=== PATIENT | female | born 1995 | race Caucasian/White ===

== ENCOUNTER 2022-12-26 08:32 | Outpatient (CLI) | payer BC, SELFPAY ==
--- NOTE | ~2022-12-26 | XR_ITS ---
EXAMINATION: XR hand LT min 3V, XR hand RT min 3V, XR wrist RT min 3V, XR wrist LT min 3V DATE: 12/26/2022 09:24 INDICATION: Bilateral hand pain TECHNIQUE: 1. Posteroanterior, ulnar deviation, oblique, and lateral views of the left wrist were obtained. 2. Dorsal palmar, oblique and lateral views of the left hand were obtained. 3. Posteroanterior, ulnar deviation, oblique, and lateral views of the right wrist were obtained. 4. Dorsal palmar, oblique and lateral views of the right hand were obtained. COMPARISON: None. FINDINGS: Alignment of the bilateral hands and wrists is normal. No fracture identified. Joint spaces are norm al. No erosions to suggest inflammatory arthritis. No focal soft tissue swelling. IMPRESSION: 1. Negative bilateral hand and wrist radiographs. Reviewed, dictated and finalized at location A. IMPRESSION: 1. Negative bilateral hand and wrist radiographs. IMPRESSION: 1. Negative bilateral hand and wrist radiographs. IMPRESSION: 1. Negative bilateral hand and wrist radiographs.
--- NOTE | ~2022-12-26 | XR_ITS ---
EXAMINATION: XR knee LT min 4V, XR knee RT min 4V DATE: 12/26/2022 09:24 INDICATION: Nontraumatic bilateral knee pain TECHNIQUE: 1. Weight bearing anteroposterior and Hteodore, sunrise, and flexed lateral views of the left knee w ere obtained. 2. Weight bearing anteroposterior and Theodore, sunrise, and flexed lateral views of the right knee were obtained. COMPARISON: None. FINDINGS: Alignment is normal. No fracture. Joint spaces are normal in all 3 compartments of both knees. No er osions or osteophytosis. No joint effusions. Soft tissues are unremarkable. IMPRESSION: 1. Negative bilateral knee radiographs. Reviewed, dictated and finalized at location A. IMPRESSION: 1. Negative bilateral knee radiographs.
== END 2022-12-26 08:33 | disposition home or self-care (01) ==
PROVIDERS: PCP Family Medicine; Visit Provider Family Medicine
DX: M25.561 Pain in right knee (principal); M25.562 Pain in left knee; M79.641 Pain in right hand; M79.642 Pain in left hand
CPT/HCPCS: 73110; 73130; 73564

== ENCOUNTER 2025-03-31 10:12 | Emergency (ER) | payer OTHER, SELFPAY ==
--- NOTE | 2025-03-31 10:14 | ED.GENADULT ---
HPI - General Adult General Chief complaint: Unspecified Stated complaint: Dehydration Time Seen by Provider: 03/31/25 10:13 Source: patient Mode of arrival: ambulatory Limitations: no limitations History of Present Illness HPI narrative: Bebe is a 29 year old female patient presenting to the clinic today with c/o possible dehydration x 1 week. 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 Is c/o rapid heart rate, muscle cramping, nausea, frontal headache, and dizziness (unsteady). Has had the past two days off and has been trying to hydrate but still feels poorly. Has some muscle stiffness in her neck as well. Rates pain 2/10 currently. Has been drinking water, taking OTC electrolye pills, and excerdrin migraine for the headache. Denies any chest pain/sob. No vomiting or diarrhea. Related Data Home Medications ?Medication ?Instructions ?Recorded ?Confirmed ?Last Taken ?Type No Home Medications 03/31/25 03/31/25 Unknown History Allergies Allergy/AdvReac Type Severity Reaction Status Date / Time tetracycline AdvReac Mild fluid Verified 03/31/25 10:55 retention Review of Systems Review of Systems: Pertinent positives per HPI. Patient denies any fever, chills, rash, visual changes, cough, runny nose, sore throat, shortness of breath, chest pain,vomiting, diarrhea, constipation, abdominal pain, or any urinary issues. PMFSH Comments At the time of my signature, I reviewed and agree with the nursing past medical, surgical, social, and family history. There is no relevant family history pertinent to the patient complaint. Exam Narrative: General: Well-developed, well nourished, in no apparent distress Head: Normocephalic, atraumatic Eyes: Pupils equally round and reactive to light bilaterally, EOM intact, sclera and conjunctive clear, no discharge, lids normal Ears: TMs intact and clear, ear canals clear, no drainage, grossly hearing normal. Nose: Nares patent, no discharge, no inflammation, no sinus tenderness. Mouth: Oropharynx without lesions or masses, good dentition, MMM. Neck: Supple, trachea midline, no enlargement of anterior or posterior cervical nodes, no thyroid masses or goiter palpable. Cardio: Regular rate and rhythm, s1 and s2 normal, no murmur appreciated. Resp: Clear to auscultation bilaterally anteriorly and posteriorly, no rhonchi, rales, wheezing or rubs Musculoskeletal: No deformity, non-tender to palpation, grossly normal range of motion, muscle strength strong and equal, peripheral pulse strong, no edema, no cyanosis, normal gait and station Neuro: Alert and oriented x4 with normal speech, no focal deficits, cranial nerves I through XII intact, muscle strength 5 out of 5, sensation intact bilaterally. Romberg testing negative Integumentary: [place], warm, and dry, intact without lesion, no rashes Course Course Emergency Course: Portions of this record may have been created with voice recognition software. Level of Care: Express Care Visit Vital Signs Vital signs: Vital Signs Temperature 37.2 C 03/31/25 10:24 Pulse Rate 76 03/31/25 10:24 Respiratory Rate 20 03/31/25 10:24 Blood Pressure 127/79 03/31/25 10:24 Pulse Oximetry 100 03/31/25 10:24 Oxygen Delivery Room Air 03/31/25 10:24 Temperature 37.2 C 03/31/25 10:24 Pulse Rate 69 03/31/25 10:39 Respiratory Rate 20 03/31/25 10:24 Blood Pressure 117/76 03/31/25 10:39 Pulse Oximetry 100 03/31/25 10:24 Oxygen Delivery Room Air 03/31/25 10:24 Vital signs reviewed Medical Decision Making MDM Narrative Medical decision making narrative: At the time of visit patient is resting comfortably on the exam table. Patient appears to be nontoxic. C/o possible dehydration x 1 week. 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 C/o rapid heart rate, muscle cramping, nausea, frontal headache, muscle stiffness, and dizziness (feeling unsteady) worse with position changes. Has had the past two days off and has been trying to hydrate but still feels poorly. Rates pain 2/10 currently. Has been drinking water, taking OTC electrolyte pills, and Excedrin migraine for the headache. No chest pain, shortness of breath, vomiting, or diarrhea. EKG, Bedside glucose, urine dip, bedside preg test, and orthostatic b/p ordered. No past medical history. No daily medications. EKG: EKG shows sinus bradycardia with heart rate of 59 beats per minute without any ST elevation, depression, or T-wave inversion. Labs: Bedside glucose- 85, urine shows trace of blood. No leukocytes or ketones. Bedside glucose negative. Orthostatic b/p: Lying blood pressure was 113/74 with heart rate of 61, sitting blood pressure was 121/76 with a heart rate of 63, standing blood pressure was 117/76 with a heart rate of 69 Plan: I suspect patient has heat exhaustion. All testing within normal limits in the clinic today. Offered to send patient to the ED for further evaluation such as electrolyte labs and IV fluids and she declined at this time. Wound like to go home and try electrolye supplementation and increase fluids and she will go to the ED if her symptoms worsen. Work note was requested for today and given. Supportive measures were discussed with the patient and they voiced understanding discharge instructions and agrees to treatment plan. Return precautions reviewed Differential Diagnosis Differential Diagnosis: Heat exhaustion, electrolyte imbalance, dehydration, heat stroke, muscle cramping, vertigo, UTI, anemia, hypovolemia, hypoglycemia, hyperglycemia, thyroid disorder Vital Signs Vital Signs: Vital Signs Temperature 37.2 C 03/31/25 10:24 Pulse Rate 76 03/31/25 10:24 Respiratory Rate 20 03/31/25 10:24 Blood Pressure 127/79 03/31/25 10:24 Pulse Oximetry 100 03/31/25 10:24 Oxygen Delivery Room Air 03/31/25 10:24 Temperature 37.2 C 03/31/25 10:24 Pulse Rate 69 03/31/25 10:39 Respiratory Rate 20 03/31/25 10:24 Blood Pressure 117/76 03/31/25 10:39 Pulse Oximetry 100 03/31/25 10:24 Oxygen Delivery Room Air 03/31/25 10:24 Lab Data Labs: Lab Results 03/31/25 03/31/25 03/31/25 Range/Units 10:28 10:41 10:46 POC Capillary Glucose 85 (65-105) mg/dl POC Urine Color Yellow POC Urine Clarity Clear POC Urine pH 7.0 POC Ur Specif [place] 1.015 POC Urine Protein Negative (Negative) POC Ur Glucose (UA) Negative (Negative) POC Urine Ketones Negative (Negative) POC Urine Blood Trace (Negative) POC Urine Nitrite Negative (Negative) POC Urine Bilirubin Negative (Negative) POC Urine Urobilinogen 0.2 POC U Leukocyte Esteras Negative (Negative) POC Urine HCG, Qual Negative (Negative) ECG Data EKG #1: Attestation: I personally reviewed and interpreted this ECG as follows: ECG completion date: 03/31/25 ECG completion time: 10:32 Prior ECG tracings: not available for review Interpretation: EKG shows sinus bradycardia with heart rate of 59 beats per minute. No ST elevation, depression, or T-wave inversion noted. Torres is 154 milliseconds, QRS durations 93 milliseconds, QT-QTC is 418-418 milliseconds, P-R-T axis 44 81 47 Discharge Plan Discharge Clinical Impression: Heat exhaustion Qualifiers: Encounter type: initial encounter Qualified Code(s): T67.5XXA - Heat exhaustion, unspecified, initial encounter Patient Disposition: Home Condition: Stable Instructions: Antibiotic Form, Heat Exhaustion (ED), Muscle Cramp (ED) Additional Instructions: Urine negative for any ketones or infection. Bedside test negative. Orthostatic blood pressures within normal limits EKG is reassuring Blood sugar was 85- normal Offered to send you to the ER for labs and IV fluids and you declined at this time- if symptoms persist or you feel worse recommend going to the emergency department. Increase fluids and stay well hydrated-may drink electrolyte solution such as Pedialyte, Nuun tablets dissolved in water, or liquid timo. Tylenol/motrin for pain/fever as directed per bottle BRAT diet for diarrhea Clear liquids x 24 hours then advance as tolerated for nausea/vomiting Go to the ED if you develop a worsening in your condition- high fever not controlled by Tylenol or Motrin, dehydration, weakness, lethargy, confusion, shortness of breath, or chest pain. Work note give for today Follow up with your PCP in 3-5 days if symptoms persist. Patient Language: Maltese Prescriptions: No Action No Home Medications Follow-up/Referrals: UNKNOWN,DOCTOR [Non-Staff] - Stand Alone Forms: Work/School Release IP Time of Disposition: 11:07 Quality NIHSS Nursing Documentation ED NIHSS nursing documentation: reviewed/agree
[2025-03-31 10:24] VITALS: BP 127/79; PULSE 76; RESP 20; TEMP 37.2; O2SAT 100
--- NOTE | 2025-03-31 10:25 | ECG_ITS ---
Test Date: 2025-03-31 10:32:31 Measurements Intervals Armstrong Rate: 59 P: 44 ND: 154 QRS: 81 QRSD: 93 T: 47 QT: 418 QTc: 416 Interpretive Statements SINUS BRADYCARDIA No previous ECG available for comparison Electronically Signed On 03-31-2025 17:26:45 CDT by Jeovany Shah D.O
[2025-03-31 10:39] VITALS: BP 113/74; BP 117/76; BP 121/76; PULSE 61; PULSE 63; PULSE 69
[2025-03-31 10:50] LABS: BEDSIDEPREGUCG Negative (Negative)
[2025-03-31 10:50] LABS: EDUAAPPEAR Clear; EDUABILI Negative (Negative); EDUABLOOD Trace (Negative); EDUACOLOR1 Yellow; EDUAGLUCOSE Negative (Negative); EDUAKETONE Negative (Negative); EDUALEUKO Negative (Negative); EDUANITRATE Negative (Negative); EDUAPH 7.0; EDUAPROTEIN Negative (Negative); EDUASPGRAVITY 1.015; EDUAUROBILI 0.2
== END 2025-03-31 11:13 | disposition home or self-care (01) ==
PROVIDERS: Emergency Provider Nurse Practitioner Family
DX: T67.5XXA Heat exhaustion, unspecified, initial encounter (principal); X30.XXXA Exposure to excessive natural heat, initial encounter
CPT/HCPCS: 81003; 81025; 82948; 93005; 99213; G0463